=== PATIENT | male | born 1935 | race Caucasian/White ===

== ENCOUNTER → 2019-09-09 | Outpatient (CLI) | payer MEDICARE, MEDICAID ==
--- NOTE | 2019-09-09 17:24 | Diagnostic Imaging Report ---
INDICATION: Low back pain for two months. TIME OF EXAM: 3:40 p.m. FINDINGS: Three views of the lumbar spine were obtained. Curvature and alignment are normal. Vertebral body heights are well maintained. No acute compression fracture is seen. There is significant degenerative disc disease at all levels with variable disc space narrowing and marginal spurring. Atherosclerotic calcifications in the abdominal aorta are noted. IMPRESSION: Lumbar spondylosis. No acute compression fracture is identified. Dictated by: Dictated on workstation # [id number]
== END ==
LOC: RAD FS 15:33
PROVIDERS: ATTEND Nurse Practitioner
DX: M47.816 Spondylosis without myelopathy or radiculopathy, lumbar region (principal)
CPT/HCPCS: 72100

== ENCOUNTER 2020-03-02 11:40 | Emergency (ER) | payer MEDICARE, MEDICAID ==
[~2020-03-02] VITALS: Ht 175 cm; Wt 85.3 kg
--- OUTSIDE RECORDS SUMMARY | 2020-03-02 11:54 | XMS REPORT | Continuity of Care Document ---
Author Organization Unknown Address Unknown Phone Unavailable Allergies There is no data. Medications There is no data. Problems Date Dx Coded Attending Type Code Diagnosis Diagnosed By 09/10/2019 JUANITA DURHAM Ot M47.816 SPONDYLOSIS W/O MYELOPATHY OR RADICULOPA 10/04/2019 JUANITA DURHAM Ot M47.816 SPONDYLOSIS W/O MYELOPATHY OR RADICULOPA 10/21/2019 JUANITA DURHAM Ot M47.816 SPONDYLOSIS W/O MYELOPATHY OR RADICULOPA Procedures There is no data. Results There is no data. Encounters ACCT No. Visit Date/Time Discharge Status Pt. Type Provider Facility Loc./Unit Complaint [id number] 09/02/2019 13:20:00 09/02/2019 23:59: 59 [facility] [id number] 09/09/2019 15:33:00 019 23:59:59 [facility] Outpatient JUANITA DURHAM [facility] RAD FS M54.5
--- NOTE | 2020-03-02 12:19 | ED General ---
General Chief Complaint: General Problems/Pain Stated Complaint: FALL Nursing Triage Note: PT FELL MONDAY AND HIT HIS CHEST AND CHIN. HE STATES HE IS STILL HAVING DISCOMFORT WHEN HE TAKES A DEEP BREATH. Nursing Sepsis Screen: No Definite Risk Source of Information: Patient Exam Limitations: No Limitations History of Present Illness Date Seen by Provider: March 02, 2020 Time Seen by Provider: 12:09 Initial Comments 84-year-old male presents to the emergency room. Patient states he has pain in his chest he fell on Monday with contact to the floor by his chest and his chin he states his chin no longer is painful but his chest continues to be painful. Rib study EKG CBC chem profile and a troponin has been ordered. Patient has given informed consent for us to get diagnostic and therapeutic services. Patient has a healing abrasion on his submental area. This is been open for the past 2 days and is now scabbed over there is no signs of infection palpation does not identify any foreign bodies. Patient states he fell on the sidewalk walking out of the independent living/extended care facility. When asked he told anyone at the facility that he had fallen he states he wouldn't do that. Patient complains of anterior chest wall pain slightly on the left aspect of the chest wall. It is reproducible on palpation patient also has some pain in the upper right chest anterior wall. He denies any other injuries from the fall. Patient denies neck pain denies head trauma or loss of consciousness. Timing/Duration: 2-3 Days Severity: Moderate Modifying Factors: improves with Movement (patient fell on Monday and sustained trauma to his chest wall angiotension has resolved) Associated Systoms: Chest Pain, Other (patient is anxious about the chest pain which appears to be anterior chest wall) Allergies and Home Medications Allergies Coded Allergies: No Known Drug Allergies (Unverified , 03/02/20) Patient Home Medication List Home Medication List Reviewed: Yes Review of Systems Review of Systems Constitutional: see HPI, weakness (anterior chest wall pain after a fall 2 days ago) EENTM: see HPI, no symptoms reported, hearing loss (preceded the fall) Respiratory: no symptoms reported, see HPI Cardiovascular: no symptoms reported, see HPI Gastrointestinal: no symptoms reported Genitourinary: no symptoms reported Musculoskeletal: see HPI, muscle stiffness, muscle cramps (anterior chest wall stiffness and pain) Skin: no symptoms reported Psychiatric/Neurological: Anxiety (from the anterior chest wall pain) Hematologic/Lymphatic: No Symptoms Reported Immunological/Allergic: no symptoms reported Past Xylybcv-Bgfexg-Nulrwg Hx Past Med/Social Hx: Reviewed Nursing Past Med/Soc Hx Patient Social History Alcohol Use: Occasionally Uses Recreational Drug Use: No Smoking Status: Never a Smoker 2nd Hand Smoke Exposure: No Recent Foreign Travel: No Contact w/Someone Who Travel: No Recent Infectious Disease Expo: No Recent Hopitalizations: No Physical Abuse: No Sexual Abuse: No Mistreated: No Fear: No Seasonal Allergies Seasonal Allergies: No Family Medical History Reviewed Nursing Family Hx Physical Exam Vital Signs Vital Signs - First Documented 03/02/20 11:56 Temp 36.7 Pulse 78 Resp 18 B/P (MAP) 161/76 (104) Pulse Ox 94 O2 Delivery Room Air Capillary Refill : Less Than 3 Seconds Height, Weight, BMI Height: '" Weight: lbs. oz. kg; 27.00 BMI Method: General Appearance: Moderate Distress (from the anterior chest wall pain after the fall 2 days ago) Eyes: Bilateral Eye Normal Inspection, Bilateral Eye PERRL, Bilateral Eye EOMI HEENT: PERRL/EOMI, Normal ENT Inspection (patient is edentulous and has upper dentures in), Pharynx Normal, Moist Mucous Membranes Neck: Full Range of Motion (normal decrease in cervical spine range of motion secondary to DJD and age but no changes recently), Normal Inspection, Non Tender, Supple Respiratory: Chest Non Tender, Lungs Clear, Normal Breath Sounds, No Accessory Muscle Use, No Respiratory Distress Cardiovascular: Regular Rate, Rhythm, No Edema, No Gallop, No JVD, No Murmur, Other (anterior chest wall pain that appears to be related to the fall 2 days ago EKG reveals normal sinus rhythm prolonged QRS complexes and left ventricular hypertrophy) Gastrointestinal: Normal Bowel Sounds, No Organomegaly, No Pulsatile Mass, Non Tender, Soft Back: Normal Inspection, No CVA Tenderness, Muscle Spasm, Other (anterior chest wall pain from falling 2 days ago) Extremity: Normal Capillary Refill, Normal Inspection, Normal Range of Motion, Non Tender, No Calf Tenderness, No Pedal Edema, Other (patient has generalized arthritis but no pain in the shoulders elbows wrists or hands no hip knee pain but he does prefer to sit in the wheelchair.) Neurologic/Psychiatric: Alert (for age), Oriented x3 (hard of hearing), No Motor/Sensory Deficits, Normal Mood/Affect (some issues of anxiety over the persistent chest wall pain after the fall 2 days ago), 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 II-XII Norm as Tested Reflexes: 2+ Bicep (R), 2+ Bicep (L), 2+ Tricep (R), 2+ Tricep (L), 2+ Knee (R), 2+ Knee (L) Skin: Normal Color, Warm/Dry, Cool Lymphatic: No Adenopathy Progress/Results/Core Measures Suspected Sepsis Recent Fever Within 48 Hours: No Infection Criteria Present: None New/Unexplained Altered Menta: No Sepsis Screen: No Definite Risk SIRS Temperature: Pulse: 78 Respiratory Rate: 18 Laboratory Tests 03/02/20 12:26: White Blood Count 6.9 Blood Pressure 161 /76 Mean: 104 Laboratory Tests 03/02/20 12:26: Creatinine 0.90, Platelet Count 187, Total Bilirubin 0.6 Results/Orders Lab Results Laboratory Tests Test 03/02/20 12:26 Range/Units White Blood Count 6.9 4.3-11.0 10^3/uL Red Blood Count 4.79 4.35-5.85 10^6/uL Hemoglobin 14.8 13.3-17.7 G/DL Hematocrit 44 40-54 % Mean Corpuscular Volume 91 80-99 FL Mean Corpuscular Hemoglobin 31 25-34 PG Mean Corpuscular Hemoglobin Concent 34 32-36 G/DL Red Cell Distribution Width 13.9 10.0-14.5 % Platelet Count 187 130-400 10^3/uL Mean Platelet Volume 9.0 7.4-10.4 FL Neutrophils (%) (Auto) 58 42-75 % Lymphocytes (%) (Auto) 22 12-44 % Monocytes (%) (Auto) 16 H 0-12 % Eosinophils (%) (Auto) 3 0-10 % Basophils (%) (Auto) 1 0-10 % Neutrophils # (Auto) 4.0 1.8-7.8 X 10^3 Lymphocytes # (Auto) 1.5 1.0-4.0 X 10^3 Monocytes # (Auto) 1.1 H 0.0-1.0 X 10^3 Eosinophils # (Auto) 0.2 0.0-0.3 10^3/uL Basophils # (Auto) 0.1 0.0-0.1 10^3/uL Sodium Level 141 135-145 MMOL/L Potassium Level 4.2 3.6-5.0 MMOL/L Chloride Level 105 98-107 MMOL/L Carbon Dioxide Level 26 21-32 MMOL/L Anion Gap 10 5-14 MMOL/L Blood Urea Nitrogen 13 7-18 MG/DL Creatinine 0.90 0.60-1.30 MG/DL Estimat Glomerular Filtration Rate > 60 BUN/Creatinine Ratio 14 Glucose Level 103 70-105 MG/DL Calcium Level 8.9 8.5-10.1 MG/DL Corrected Calcium 9.1 8.5-10.1 MG/DL Total Bilirubin 0.6 0.1-1.0 MG/DL Aspartate Amino Transf (AST/SGOT) 17 5-34 U/L Alanine Aminotransferase (ALT/SGPT) 13 0-55 U/L Alkaline Phosphatase 85 40-136 U/L Troponin I < 0.30 <0.30 NG/ML Total Protein 7.0 6.4-8.2 GM/DL Albumin 3.7 3.2-4.5 GM/DL My Orders Orders - MADONNA GARRIDO DO Ekg Tracing (03/02/20 12:03) Ribs/Bilateral (03/02/20 12:03) Cbc And Manual Diff (03/02/20 12:13) Comprehensive Metabolic Panel (03/02/20 12:13) Troponin I Fs (03/02/20 12:13) Vital Signs/I&O 03/02/20 11:56 Temp 36.7 Pulse 78 Resp 18 B/P (MAP) 161/76 (104) Pulse Ox 94 O2 Delivery Room Air Capillary Refill : Less Than 3 Seconds Blood Pressure Mean: 104 Progress Note : Time: 13:41 Progress Note FINDINGS: Mildly angulated left lateral 4th and 5th rib fractures. There is also a mildly angulated right 5th rib fracture. No other fractures identified. Normal heart size and central pulmonary vascularity. Mild atelectasis or scarring in the right lung base. No pleural effusion or pneumothorax. IMPRESSION: 1. Mildly angulated left lateral 4th and 5th and right 5th rib fractures. Acute to subacute. 2. Mild atelectasis or scarring in the right lung base. No pleural effusion or pneumothorax. ECG Initial ECG Impression Date: March 02, 2020 Initial ECG Impression Time: 11:59 Initial ECG Rate: 68 Initial ECG Rhythm: Normal Sinus Initial ECG Intervals: Normal (she has evidence of left ventricular hypertrophy and prolonged IA interval) Initial ECG Impression: Normal Departure Impression Primary Impression: Ribs, multiple fractures Additional Impression: Abrasion, chin w/o infection Disposition: 01 HOME, SELF-CARE (patient lives in independent living facility) Condition: Improved (patient does have a fractured ribs needs to have this followed up with Lizet ROBERT) Departure-Patient Inst. Referrals: [facility] (PCP) Primary Care Physician LIZET LIAO APRN (Family) Primary Care Physician Patient Instructions: CHRONIC PAIN, Rib Fracture (DC), Skin Abrasions (DC), Acute Pain, Adult (DC) Add. Discharge Instructions: Patient understands he needs to have assistance and will have significant pain from the rib fractures. Hydrocodone 02/08/25 have been ordered. Patient will follow-up with Lizet Liao [employer] for continued care. Patient states he does have a rib belt although I have recommended that he not use this to maintain adequate respiratory function. FINDINGS: Mildly angulated left lateral 4th and 5th rib fractures. There is also a mildly angulated right 5th rib fracture. No other fractures identified. Normal heart size and central pulmonary vascularity. Mild atelectasis or scarring in the right lung base. No pleural effusion or pneumothorax. IMPRESSION: 1. Mildly angulated left lateral 4th and 5th and right 5th rib fractures. Acute to subacute. 2. Mild atelectasis or scarring in the right lung base. No pleural effusion or pneumothorax. All discharge instructions reviewed with patient and/or family. Voiced understanding. Scripts Hydrocodone/Acetaminophen (Hydrocodone-Acetamin 5-325 mg) 1 Each Tablet 1 EACH PO Q6H for Pain for 7 Days, #28 TAB Prov: MADONNA GARRIDO DO 03/02/20 Copy Copies To 1: [facility]/MADONNA CALLES DO March 02, 2020 12:19
--- NOTE | 2020-03-02 12:37 | NUR ---
SMALL ARASION UNDER THE CHIN. CLEANED WITH SOAP AND WATER AND APPLIED TRIPLE ANTIBIOTIC OINTMENT. Addendum: 03/02/20 at 1237 by MWESCOAT ABRASION
--- NOTE | 2020-03-02 12:55 | Diagnostic Imaging Report ---
EXAM: Chest with bilateral rib radiographs, 6 view. INDICATION: Chest pain left greater than right. Fall 3 days ago. COMPARISON: None. FINDINGS: Mildly angulated left lateral 4th and 5th rib fractures. There is also a mildly angulated right 5th rib fracture. No other fractures identified. Normal heart size and central pulmonary vascularity. Mild atelectasis or scarring in the right lung base. No pleural effusion or pneumothorax. IMPRESSION: 1. Mildly angulated left lateral 4th and 5th and right 5th rib fractures. Acute to subacute. 2. Mild atelectasis or scarring in the right lung base. No pleural effusion or pneumothorax. Dictated by: Dictated on workstation # [id number]
[2020-03-02 12:59] LABS: HEMATOCRIT 44 % (40-54); HEMOGLOBIN 14.8 G/DL (13.3-17.7); MEAN CORPUSCULAR HEMOGLOBIN 31 PG (25-34); MEAN CORPUSCULAR HGB CONC 34 G/DL (32-36); MEAN CORPUSCULAR VOLUME 91 FL (80-99); WHITE BLOOD COUNT 6.9 10^3/uL (4.3-11.0)
[2020-03-02 13:00] LABS: BASOPHILS # (AUTO) 0.1 10^3/uL (0.0-0.1); BASOPHILS % (AUTO) 1 % (0-10); EOSINOPHILS # (AUTO) 0.2 10^3/uL (0.0-0.3); EOSINOPHILS % (AUTO) 3 % (0-10); LYMPHOCYTES # (AUTO) 1.5 X 10^3 (1.0-4.0); LYMPHOCYTES % (AUTO) 22 % (12-44); MONOCYTES # (AUTO) 1.1 X 10^3 (0.0-1.0); MONOCYTES % (AUTO) 16 % (0-12); NEUTROPHILS % (AUTO) 58 % (42-75); PLATELET COUNT 187 10^3/uL (130-400); RED CELL DISTRIBUTION WIDTH 13.9 % (10.0-14.5)
[2020-03-02 13:17] LABS: BUN/CREATININE RATIO 14; CARBON DIOXIDE 26 MMOL/L (21-32); CHLORIDE 105 MMOL/L (98-107); GFR ESTIMATED > 60; POTASSIUM 4.2 MMOL/L (3.6-5.0); SODIUM 141 MMOL/L (135-145)
[2020-03-02 13:18] LABS: ALANINE AMINOTRANSFERASE 13 U/L (0-55); ALBUMIN 3.7 GM/DL (3.2-4.5); ALKALINE PHOSPHATASE 85 U/L (40-136); BILIRUBIN,TOTAL 0.6 MG/DL (0.1-1.0); CALCIUM 8.9 MG/DL (8.5-10.1); GLUCOSE 103 MG/DL (70-105)
[2020-03-02] MEDS ORDERED: HYDR-83 PO (13:41)
[2020-03-02 13:51] VITALS: BP 124/72
[2020-03-02 14:13] LABS: BAND NEUTROPHILS 1 %; BASOPHILS % (MANUAL) 0 %; EOSINOPHILS % (MANUAL) 2 %; LYMPHOCYTES % (MANUAL) 26 %; MONOCYTES % (MANUAL) 9 %; NEUTROPHILS % (MANUAL) 62 %
== END 2020-03-02 13:52 | disposition home or self-care (01) ==
LOC: EDUNIT# 11:40 → ER FS 11:44
DX: S22.43XA Multiple fractures of ribs, bilateral, initial encounter for closed fracture (principal); S00.81XA Abrasion of other part of head, initial encounter; W19.XXXA Unspecified fall, initial encounter
CPT/HCPCS: 36415; 71110; 80053; 84484; 85007; 85027; 93005

== ENCOUNTER → 2021-01-19 | Outpatient (CLI) | payer MEDICARE, MEDICAID ==
[~2021-01-19] MED LIST: ACHD5005 PO; AZIT500T9 PO; PRD20T PO
--- NOTE | 2021-01-19 16:19 | Diagnostic Imaging Report ---
INDICATION: Pain and swelling of the great toe. COMPARISON: None. FINDINGS: Three views of the right foot demonstrate no acute fracture or dislocation. There are no focal osseous lesions. There is no soft tissue swelling. Joint spaces are well maintained. No radiopaque foreign bodies are seen. IMPRESSION: No acute fractures or dislocations of the right foot. Dictated by: Dictated on workstation # [id number]
== END ==
LOC: RAD FS 14:16
PROVIDERS: ATTEND Nurse Practitioner Family
DX: S90.31XA Contusion of right foot, initial encounter (principal); X58.XXXA Exposure to other specified factors, initial encounter
CPT/HCPCS: 73630

== ENCOUNTER 2021-11-13 18:13 | Inpatient (IN) | payer MEDICARE, MEDICAID ==
[~2021-11-13] VITALS: Ht 177 cm; Wt 81.0 kg
--- NOTE | 2021-11-13 18:26 | ED Chest Pain ---
General Stated Complaint: RIGHT LUNG PAIN Source: patient Exam Limitations: no limitations History of Present Illness Date Seen by Provider: Nov 13, 2021 Time Seen by Provider: 18:18 Initial Comments 86-year-old male with no significant past medical history coming in due to right sided chest pain. He says it is sharp, and happens with each breath. Similar to the pain he had several months ago. Is been going on constant for the past 12 hours. He has not taken any medicines for it. Nothing seems to make it better or worse. He denies feeling short of breath, fever, cough, abdominal pain, hemoptysis, nausea, vomiting, weakness, numbness, or any other concerns Allergies and Home Medications Allergies Coded Allergies: No Known Drug Allergies (Unverified , 03/02/20) Patient Home Medication List Home Medication List Reviewed: Yes Azithromycin (Azithromycin) 500 Mg Tablet, 500 MG PO DAILY Prescribed by: REGINA ZARCO on 12/30/20 0106 Hydrocodone/Acetaminophen (Hydrocodone-Acetamin 5-325 mg) 1 Each Tablet, 1 EACH PO Q6H Prescribed by: MADONNA GARRIDO on 03/02/20 1341 Prednisone (Prednisone) 20 Mg Tab, 40 MG PO DAILY Prescribed by: REGINA ZARCO on 12/30/20 0106 Review of Systems Review of Systems Constitutional: No chills, No fever EENTM: No Blurred Vision Respiratory: Denies Cough Cardiovascular: Chest Pain Gastrointestinal: Denies Abdominal Pain Genitourinary: Denies Burning Musculoskeletal: no symptoms reported Skin: no symptoms reported Psychiatric/Neurological: No Symptoms Reported Endocrine: No Symptoms Reported Hematologic/Lymphatic: No Symptoms Reported All Other Systems Reviewed Negative Unless Noted: Yes Past Tgikekv-Hbceiq-Aslohc Hx Patient Social History Tobacco Use?: No Substance use?: No Alcohol Use?: No Seasonal Allergies Seasonal Allergies: No Past Medical History Surgeries: No Respiratory: No Cardiac: No Neurological: No Genitourinary: No Gastrointestinal: No Musculoskeletal: No Endocrine: No HEENT: No Cancer: No Psychosocial: No Integumentary: No Blood Disorders: No Physical Exam Vital Signs Vital Signs - First Documented 11/13/21 11/13/21 18:36 20:33 Temp 36.0 Pulse 70 Resp 20 B/P (MAP) 192/65 (107) Pulse Ox 94 O2 Delivery Room Air O2 Flow Rate 2.00 Capillary Refill : Height, Weight, BMI Height: '" Weight: lbs. oz. kg; 27.00 BMI Method: General Appearance: No Apparent Distress, WD/WN HEENT: PERRL/EOMI, Normal ENT Inspection, Pharynx Normal Neck: Full Range of Motion, Normal Inspection, Non Tender, Supple Respiratory: Chest Non Tender, Lungs Clear, Normal Breath Sounds, No Accessory Muscle Use, No Respiratory Distress Cardiovascular: Regular Rate, Rhythm, No Edema, Normal Peripheral Pulses Gastrointestinal: Normal Bowel Sounds, Non Tender, Soft; No Distended, No Guarding Extremity: Normal Capillary Refill, Normal Inspection, Normal Range of Motion, Non Tender, No Calf Tenderness, No Pedal Edema Neurologic/Psychiatric: No Motor/Sensory Deficits, Normal Mood/Affect Skin: Normal Color, Warm/Dry Lymphatic: No Adenopathy Progress/Results/Core Measures Results/Orders Lab Results Laboratory Tests Test 11/13/21 18:34 11/13/21 20:09 Range/Units White Blood Count 7.8 4.3-11.0 10^3/uL Red Blood Count 4.85 4.30-5.52 10^6/uL Hemoglobin 14.6 13.3-17.7 g/dL Hematocrit 44 40-54 % Mean Corpuscular Volume 91 80-99 fL Mean Corpuscular Hemoglobin 30 25-34 pg Mean Corpuscular Hemoglobin Concent 33 32-36 g/dL Red Cell Distribution Width 14.0 10.0-14.5 % Platelet Count 278 130-400 10^3/uL Mean Platelet Volume 8.7 L 9.0-12.2 fL Immature Granulocyte % (Auto) 0 % Neutrophils (%) (Auto) 54 42-75 % Lymphocytes (%) (Auto) 25 12-44 % Monocytes (%) (Auto) 14 H 0-12 % Eosinophils (%) (Auto) 7 0-10 % Basophils (%) (Auto) 1 0-10 % Neutrophils # (Auto) 4.2 1.8-7.8 X 10^3 Lymphocytes # (Auto) 1.9 1.0-4.0 X 10^3 Monocytes # (Auto) 1.1 H 0.0-1.0 X 10^3 Eosinophils # (Auto) 0.5 H 0.0-0.3 10^3/uL Basophils # (Auto) 0.1 0.0-0.1 10^3/uL Immature Granulocyte # (Auto) 0.0 0.0-0.1 10^3/uL Prothrombin Time 13.2 12.2-14.7 SEC INR Comment 1.0 0.8-1.4 Activated Partial Thromboplast Time 27 24-35 SEC D-Dimer 3.78 H 0.00-0.49 UG/ML Sodium Level 137 135-145 MMOL/L Potassium Level 4.1 3.6-5.0 MMOL/L Chloride Level 100 98-107 MMOL/L Carbon Dioxide Level 25 21-32 MMOL/L Anion Gap 12 5-14 MMOL/L Blood Urea Nitrogen 14 7-18 MG/DL Creatinine 0.92 0.60-1.30 MG/DL Estimat Glomerular Filtration Rate 82 BUN/Creatinine Ratio 15 Glucose Level 100 70-105 MG/DL Calcium Level 9.2 8.5-10.1 MG/DL Corrected Calcium 9.5 8.5-10.1 MG/DL Magnesium Level 2.3 1.6-2.4 MG/DL Total Bilirubin 0.5 0.1-1.0 MG/DL Aspartate Amino Transf (AST/SGOT) 18 5-34 U/L Alanine Aminotransferase (ALT/SGPT) 11 0-55 U/L Alkaline Phosphatase 108 40-136 U/L Troponin I < 0.30 < 0.30 <0.30 NG/ML Pro-B-Type Natriuretic Peptide 734.1 H <75.0 PG/ML Total Protein 8.2 6.4-8.2 GM/DL Albumin 3.6 3.2-4.5 GM/DL My Orders Orders - KAVEH ROGEL MD Cbc With Automated Diff (11/13/21 18:24) Magnesium (11/13/21 18:24) Chest 1 View Ap/Pa Only (11/13/21 18:24) Ekg Tracing (11/13/21 18:24) Comprehensive Metabolic Panel (11/13/21 18:24) Protime With Inr (11/13/21 18:24) Partial Thromboplastin Time (11/13/21 18:24) O2 (11/13/21 18:24) Monitor-Rhythm Ecg Trace Only (11/13/21 18:24) Aspirin Chewable Tablet (Baby Aspirin Ch (11/13/21 18:30) Ed Iv/Invasive Line Start (11/13/21 18:24) Troponin I Fs (11/13/21 18:24) Probnp Fs (11/13/21 18:24) Fibrin Degradation Products (11/13/21 18:26) Ct Angio Chest W (11/13/21 19:02) Iohexol Injection (Omnipaque 350 Mg/Ml 1 (11/13/21 19:15) Received Contrast (Hold Metformin- Contr (11/13/21 19:15) Sodium Chloride Flush (Catheter Flush Sy (11/13/21 19:15) Ns (Ivpb) (Sodium Chloride 0.9% Ivpb Bag (11/13/21 19:15) Troponin I Fs (11/13/21 19:59) Heparin Drip 53616 Unit/500ml (Heparin (11/13/21 20:30) Heparin (Bolus Per Protocol) (Heparin (B (11/13/21 20:30) Cbc No Diff (11/16/21 05:00) Cbc No Diff (11/19/21 05:00) Platelet Count (11/14/21 05:00) Platelet Count (11/15/21 05:00) Platelet Count (11/16/21 05:00) Platelet Count (11/17/21 05:00) Platelet Count (11/18/21 05:00) Platelet Count (11/19/21 05:00) Platelet Count (11/20/21 05:00) Platelet Count (11/21/21 05:00) Platelet Count (11/22/21 05:00) Platelet Count (11/23/21 05:00) Partial Thromboplastin Time (11/14/21 00:27) Protime With Inr (11/16/21 05:00) Protime With Inr (11/17/21 05:00) Protime With Inr (11/18/21 05:00) Protime With Inr (11/19/21 05:00) Protime With Inr (11/20/21 05:00) Protime With Inr (11/21/21 05:00) Protime With Inr (11/22/21 05:00) Protime With Inr (11/23/21 05:00) Protime With Inr (11/24/21 05:00) Protime With Inr (11/25/21 05:00) Initiate Heparin Full Protocol (11/13/21 20:27) Medications Given in ED Current Medications Medications Dose Ordered Sig/Musa Route Start Time Stop Time Status Last Admin Dose Admin Aspirin 324 mg ONCE ONCE PO 11/13/21 18:30 11/13/21 18:31 DC 11/13/21 18:45 324 MG Iohexol 150 ml ONCE ONCE IV 11/13/21 19:15 11/13/21 19:16 DC 11/13/21 20:04 125 ML Sodium Chloride 10 ml NEEDED PRN IV 11/13/21 19:15 11/13/21 20:04 10 ML Sodium Chloride 100 ml ONCE ONCE IV 11/13/21 19:15 11/13/21 19:16 DC 11/13/21 20:04 100 ML Vital Signs/I&O 11/13/21 11/13/21 18:36 20:33 Temp 36.0 Pulse 70 Resp 20 B/P (MAP) 192/65 (107) Pulse Ox 94 91 O2 Delivery Room Air Nasal Cannula O2 Flow Rate 2.00 Progress Progress Note : Progress Note 86-year-old male with above history coming in due to chest pain. ABCs were intact and vitals were stable on presentation initially. Basic labs obtained including cardiac biomarkers. Troponin was negative x2. D-dimer elevated. CTA chest ordered and concerning for PE on the right. Later on his oxygen dropped to around 88% on room air. He was placed on 2 L nasal cannula and started on a heparin drip after a bolus. His PESI score is 115 making him high risk. Discussed admission with Dr. Rapp who will admit the patient to the floor with tele under inpatient status for further evaluation and management. Of note, the patient was in the emergency department for several hours longer than expected due to delays in bed assignment due to how busy the [facility] has been. The patient was updated regarding this. Initial ECG Impression Date: Nov 13, 2021 Initial ECG Impression Time: 18:24 Initial ECG Rate: 67 Initial ECG Rhythm: Normal Sinus Comment Narrow QRS, borderline left axis deviation, no significant ST changes, T wave flattening in lead aVF with inversion in lead III which is nonspecific Diagnostic Imaging Diagonstic Imaging: CT (chest) Comments NAME: IZAIAH WHEELER [facility] REC#: [id number] PT STATUS: REG ER : 1935 PHYSICIAN: KAVEH ROGEL MD ADMIT DATE: 11/13/21/ER FS Draft Date of Exam:11/13/21 CT ANGIO CHEST W INDICATION: Right-sided chest pain, elevated d-dimer. EXAMINATION: CTA chest. 11/13/2021. All CT scans use one or more of the following dose optimizing techniques: automated exposure control, MA and/or KvP adjustment based on patient size and exam type or iterative reconstruction. FINDINGS: There is thrombus in the distal right main pulmonary artery which extends into the mid right pulmonary artery. Thrombus extends into all branches of the right upper lobe. Thrombus is seen extending into the right middle lobe and slightly involving several branches in the right lower lobe. No saddle embolus is seen. There is atherosclerotic disease along the aorta. Scattered slightly prominent lymph nodes seen throughout the mediastinum and right hilum. There is marked atherosclerotic disease in the visualized abdominal aorta. Multiple cysts, incompletely imaged, seen within the kidneys. No acute abnormality seen within the visualized upper abdomen. There is diffuse degenerative disease within the visualized osseous structures. Within the lungs, scattered patchy linear markings are noted throughout the lungs especially peripherally likely due to scar and/or atelectasis. There is marked emphysematous change, bilaterally. There are no significant pericardial or pleural effusions. IMPRESSION: 1. Multiple pulmonary emboli throughout the right lung involving the right main pulmonary artery as well. 2. Diffuse chronic changes within the lungs. 3. Nonspecific adenopathy in the mediastinum and right hilum. This could be reactive but could be followed to assure resolution. Other findings as above. Pertinent findings will be called to Dr. Rogel by Dr. Rueda at 8:20 PM on 11/13/2021. Dictated on workstation # [id number] Dict: 11/13/212015 Trans: 11/13/212043 [facility] [id number] Interpreted by: PARAS RUEDA MD Departure Impression Primary Impression: Pulmonary emboli Qualified Codes: I26.99 - Other pulmonary embolism without acute cor pulmonale Additional Impression: Hypoxia Disposition: 30 STILL A PATIENT Condition: Stable Admissions Decision to Admit Reason: Admit from ER (General) Decision to Admit/Date: Nov 13, 2021 Time/Decision to Admit Time: 20:46 Transfer Method of Transfer: EMS Departure-Patient Inst. Referrals: [facility] (PCP) Primary Care Physician LUCINA LIAO APRN (Family) Primary Care Physician KAVEH ROGEL MD Nov 13, 2021 18:26
[2021-11-13] MEDS ORDERED: ASPIRIN 81 MG CHEW (CHILDREN'S ASA) PO ONE (18:30)
[2021-11-13 18:38] LABS: BASOPHILS # (AUTO) 0.1 10^3/uL (0.0-0.1); BASOPHILS % (AUTO) 1 % (0-10); EOSINOPHILS # (AUTO) 0.5 10^3/uL (0.0-0.3); EOSINOPHILS % (AUTO) 7 % (0-10); HEMATOCRIT 44 % (40-54); HEMOGLOBIN 14.6 g/dL (13.3-17.7); LYMPHOCYTES # (AUTO) 1.9 X 10^3 (1.0-4.0); LYMPHOCYTES % (AUTO) 25 % (12-44); MEAN CORPUSCULAR HEMOGLOBIN 30 pg (25-34); MEAN CORPUSCULAR HGB CONC 33 g/dL (32-36); MEAN CORPUSCULAR VOLUME 91 fL (80-99); MEAN PLATELET VOLUME 8.7 fL (9.0-12.2); MONOCYTES # (AUTO) 1.1 X 10^3 (0.0-1.0); MONOCYTES % (AUTO) 14 % (0-12); NEUTROPHILS # (AUTO) 4.2 X 10^3 (1.8-7.8); NEUTROPHILS % (AUTO) 54 % (42-75); PLATELET COUNT 278 10^3/uL (130-400); WHITE BLOOD COUNT 7.8 10^3/uL (4.3-11.0)
--- NOTE | 2021-11-13 18:52 | Diagnostic Imaging Report ---
INDICATION: Chest pain. EXAMINATION: Chest, 11/13/2021. COMPARISON: 12/29/2020. FINDINGS: There are patchy infiltrates in the right mid and lower lung and at the left lung base. The heart is stable. Pulmonary vasculature unremarkable. There is no pneumothorax. There are no effusions. IMPRESSION: Patchy scattered bilateral infiltrates. Dictated by: Dictated on workstation # [id number]
[2021-11-13 18:57] LABS: BILIRUBIN,TOTAL 0.5 MG/DL (0.1-1.0); CALCIUM 9.2 MG/DL (8.5-10.1); CREATININE SERUM 0.92 MG/DL (0.60-1.30); MAGNESIUM 2.3 MG/DL (1.6-2.4); POTASSIUM 4.1 MMOL/L (3.6-5.0); PROTHROMBIN TIME PATIENT 13.2 SEC (12.2-14.7); TOTAL PROTEIN 8.2 GM/DL (6.4-8.2)
[2021-11-13 18:58] LABS: ALBUMIN 3.6 GM/DL (3.2-4.5)
[2021-11-13] MEDS ORDERED: CATHETER FLUSH 10 ML SYR IV PRN (19:15)
[2021-11-13] MEDS ORDERED: IOHEXOL 350 MG/ML 150 ML (OMNIPAQUE 350) VIAL IV ONE (19:15)
[2021-11-13] MEDS ORDERED: NS 100 ML (IVPB) BAG IV ONE (19:15)
[2021-11-13] MEDS ORDERED: HOLD METFORMIN - RECEIVED CONTRAST 20 ML VIAL IV SCH (19:15)
[2021-11-13] MEDS ORDERED: HEParin 1000 UNIT/ML (10ML VIAL) FOR BOLUS IV SCH (20:30)
[2021-11-13] MEDS ORDERED: HEParin DRIP 25000 UNIT/500ML 500 ML IV SCH (20:30)
--- NOTE | 2021-11-13 20:46 | Diagnostic Imaging Report ---
INDICATION: Right-sided chest pain, elevated d-dimer. EXAMINATION: CTA chest. 11/13/2021. All CT scans use one or more of the following dose optimizing techniques: automated exposure control, MA and/or KvP adjustment based on patient size and exam type or iterative reconstruction. FINDINGS: There is thrombus in the distal right main pulmonary artery which extends into the mid right pulmonary artery. Thrombus extends into all branches of the right upper lobe. Thrombus is seen extending into the right middle lobe and slightly involving several branches in the right lower lobe. No saddle embolus is seen. There is atherosclerotic disease along the aorta. Scattered slightly prominent lymph nodes seen throughout the mediastinum and right hilum. There is marked atherosclerotic disease in the visualized abdominal aorta. Multiple cysts, incompletely imaged, seen within the kidneys. No acute abnormality seen within the visualized upper abdomen. There is diffuse degenerative disease within the visualized osseous structures. Within the lungs, scattered patchy linear markings are noted throughout the lungs especially peripherally likely due to scar and/or atelectasis. There is marked emphysematous change, bilaterally. There are no significant pericardial or pleural effusions. IMPRESSION: 1. Multiple pulmonary emboli throughout the right lung involving the right main pulmonary artery as well. 2. Diffuse chronic changes within the lungs. 3. Nonspecific adenopathy in the mediastinum and right hilum. This could be reactive but could be followed to assure resolution. Other findings as above. Pertinent findings will be called to Dr. Castrejon by Dr. Rueda at 8:20 PM on 11/13/2021. Dictated by: Dictated on workstation # [id number]
[2021-11-14] VITALS (8 sets, daily range): BP systolic 162–192; BP diastolic 65–83
[2021-11-14] MEDS ORDERED: HEParin DRIP 25000 UNIT/500ML 500 ML IV SCH (01:45)
[2021-11-14] MEDS ORDERED: RT-ALBUTEROL/IPRATROPIUM 3 ML (DUONEB) VIAL INH PRN (01:45)
[2021-11-14] MEDS ORDERED: HEParin 1000 UNIT/ML (10ML VIAL) FOR BOLUS IV SCH (01:45)
[2021-11-14] MEDS ORDERED: CATHETER FLUSH 10 ML SYR IV PRN (01:45)
[2021-11-14] MEDS: CATHETER FLUSH 10 ML SYR IV SCH ×3 (04:01→19:19)
[2021-11-14] MEDS ORDERED: FLU QUAD HIGH DOSE 240 MCG/0.7 ML 2021-22 (FLUZONE) IM ONE (07:15)
--- NOTE | 2021-11-14 10:35 | History & Physical-Hospitalist ---
History of Present Illness HPI/Chief Complaint 86-year-old male with no significant past medical history coming in due to right sided chest pain. He says it is sharp, and happens with each breath. Similar to the pain he had several months ago. Is been going on constant for the past 12 hours. He has not taken any medicines for it. Nothing seems to make it better or worse. He denies feeling short of breath, fever, cough, abdominal pain, hemoptysis, nausea, vomiting, weakness, numbness, or any other concerns. Upon my arrival patient reported no shortness of breath nor is he felt short of breath just had pain with taking deep breaths on the right side. He denied weight loss had been feeling in his usual state of health up until the onset of his chest pain yesterday. He has had no trauma no inactivity still functioning independently at home per his report. He reports no past history of thromboembolic disease. He initially denied any leg symptoms but when I pointed out that he had a little bit of redness and swelling in the left leg compared to the right he said no he had had been swelling a little bit the last 3 or 4 days but he did not think much of it and there was some mild discomfort. He takes no medication at home [id number] otherwise. Date Seen 11/14/21 Time Seen by a Provider: 10:31 Attending Physician Gabi Mccormick MD [facility] Referring Physician Date of Admission Nov 14, 2021 at 00:30 Home Medications & Allergies Home Medications Reviewed patient Home Medication Reconciliation performed by pharmacy medication reconciliations medical administrative technician and/or nursing. Patients Allergies have been reviewed. Allergies Allergies Coded Allergies No Known Drug Allergies (Unverified03/02/20) Past Paaqwiq-Icpcbc-Jtwvpl Hx Patient Social History Tobacco Use?: No Smoking Status: Former Smoker Smokeless Tobacco Frequency: Never a User Use of E-Cig and/or Vaping dev: No Substance use?: No Alcohol Use?: No Pt feels they are or have been: No Seasonal Allergies Seasonal Allergies: No Current Status Advance Directives: Unable to obtain Communicates: Verbally Primary Language: Greek Preferred Spoken Language: Greek Is interpretation needed?: No Implanted or Applied Medical D: None Past Medical History Blood Disorders: No Review of Systems Constitutional: see HPI Physical Exam Physical Exam Vital Signs Vital Signs - First Documented 11/13/21 11/13/21 18:36 20:33 Temp 36.0 Pulse 70 Resp 20 B/P (MAP) 192/65 (107) Pulse Ox 94 O2 Delivery Room Air O2 Flow Rate 2.00 Capillary Refill : Height, Weight, BMI Height: '" Weight: lbs. oz. kg; 25.85 BMI Method: General Appearance: No Apparent Distress Respiratory: No Accessory Muscle Use, No Respiratory Distress, Other (Fine sounding basilar rales noted a little more prominent on the right than the left no wheezing chest otherwise clear.) Cardiovascular: Regular Rate, Rhythm, No Edema, No Gallop, No JVD, No Murmur, Normal Peripheral Pulses Gastrointestinal: Normal Bowel Sounds, No Organomegaly, No Pulsatile Mass, Non Tender, Soft Extremity: Other (Swelling with trace edema of the left calf there is mild erythema no over the anterior tibia without induration no ulceration noted. Rig ht side unremarkable. Extremities warm.) Results Results/Procedures Labs Laboratory Tests 11/13/21 18:34 11/14/21 07:35 Patient resulted labs reviewed. Assessment/Plan Admission Diagnosis 1. Multiple right-sided pulmonary emboli with hypoxemia currently stable on oxygen and heparin. Will switch to Eliquis with a chest dose tonight and DC heparin 2 hours after. Discussed the importance of medication compliance to prevent life-threatening recurrent blood clots. This appears to be unprovoked. 2. COPD past history of likely 70+ pack year reportedly quit 1 to [address] findings compatible with emphysema as well as some nondescript mediastinal lymphadenopathy this will need follow-up as well and overt pulmonary masses not noted underlying malignancy triggering thromboembolic disease in an individual with heavy past smoking is a concern. 3. Blood pressure elevation probable hypertension asymptomatic continue to monitor. No rhythm abnormalities will DC telemetry. Admission Status: Inpatient Order (span 2 midnights) Reason for Inpatient Admission: See admission diagnosis GABI MCCORMICK MD Nov 14, 2021 10:35
[2021-11-14] MEDS: APIXABAN 5 MG (ELIQUIS) TABLET PO SCH (19:19)
[2021-11-15] VITALS: BP 174/77
[2021-11-15 04:00] VITALS: BP 146/78
[2021-11-15] MEDS: CATHETER FLUSH 10 ML SYR IV SCH ×3 (05:14→20:10)
[2021-11-15 08:00] VITALS: BP 161/74
[2021-11-15] MEDS: APIXABAN 5 MG (ELIQUIS) TABLET PO SCH ×2 (08:11→20:10)
[2021-11-15 12:00] VITALS: BP 146/68
--- NOTE | 2021-11-15 15:53 | Physical Therapy Evaluation ---
PT Evaluation-General Medical Diagnosis Admission Date Nov 14, 2021 at 00:30 Medical Diagnosis: PE Onset Date: Nov 14, 2021 Therapy Diagnosis Therapy Diagnosis: impaired mobility, endurance Precautions Precautions/Isolations: Fall Prevention, Standard Precautions Referral Physician: Dea Reason for Referral: Evaluation/Treatment Medical History Pertinent Medical History: COPD Reviewed History: Yes Social History Home: Apartment Current Living Status: Alone Entry Into Home: Elevator Prior Prior Level of Function SCALE: Activities may be completed with or without assistive devices. 5-Hdumhjxqmt-quadbqc completes the activity by him/herself with no assistance from a helper. 5-Set-up or Clean-up Assistance-helper sets up or cleans up; patient completes activity. [place] assists only prior to or following the activity. 4-Supervision or Touching Assistance-helper provides verbal cues and/or touching/steadying and/or contact guard assistance as patient completes activity. Assistance may be provided throughout the activity or intermittently. 3-Partial/Moderate Assistance-helper does LESS THAN HALF the effort. [place] lifts, holds or supports trunk or limbs, but provides less than half the effort. 2-Substantial/Maximal Assistance-helper does MORE THAN HALF the effort. [place] lifts or holds trunk or limbs and provides more than half the effort. 6-Imxxpdbnk-lpjdpa does ALL the effort. Patient does none of the effort to complete the activity. Or, the assistance of 2 or more helpers is required for the patient to complete the activity. If activity was not attempted, code reason: 7-Patient Refused. 9-Not Applicable-not attempted and the patient did not perform the activity before the current illness, exacerbation or injury. 10-Not Attempted due to Environmental Limitations-(lack of equipment, weather restraints, etc.). 88-Not Attempted due to Medical Conditions or Safety Concerns. Bed Mobility: 6 Transfers (B,C,W/C): 6 Gait: 6 Indoor Mobility (Ambulation): Independent PT Evaluation-Current Subjective Patient in bed pre tx, agrees to PT, has no complaints of pain. Pt/Family Goals none stated Objective Patient Orientation: Person, Place, Situation Attachments: Oxygen ROM/Strength ROM Lower Extremities WNL Strength Lower Extremities grossly 4+/5 BLE Sensory Hearing: Functional Transfers Roll Left to Right (QC): 6 Sit to Lying (QC): 6 Lying to Sitting/Side of Bed(Q: 6 Sit to Stand (QC): 4 Chair/Wyv-cq-Jzrfz Xfer(QC): 4 Gait Does the Patient Walk?: Yes Mode of Locomotion: Walk Anticipated Mode of Locomotion: Walk Walk 10 feet (QC): 4 Distance: 20' Gait Assistive Device: None Comments/Gait Description Patient is very uncooperative. He insists on ambulating to the restroom using things in the room to hold onto, has therapist put bedside commode between his bed and restroom so he could hold onto it. Patient states he is tired of people telling him what to do and that he gets around at home just fine. He does agree to ambulate in the hallway tomorrow and to start trying to increase strength and balance (using a rolling walker) so he can ambulate without holding onto things. Balance Sitting Static: Normal Sitting Dynamic: Normal Standing Static: Fair Standing Dynamic: Poor Assessment/Needs Patient in bed post tx with nurse call, phone, tray, all needs met bed alarm on. Patient has impaired mobility, strength, endurance. He needs SBA for ambulation and transfers. Rehab Potential: Fair PT Dual Rate Supervisor Goals Fpc Goals PT Fpc Goals Time Frame: Nov 22, 2021 Roll Left & Right (QC): 6 Sit to Lying (QC): 6 Lying-Sitting on Side/Bed(QC): 6 Sit to Stand (QC): 5 Chair/Ncf-cw-Hufnt Xfer(QC): 5 Walk 10 feet (QC): 5 Walk 50ft with 2 Turns (QC): 5 PT Plan Problem List Problem List: Activity Tolerance, Functional Strength, Safety, Balance, Gait, Transfer, ROM Treatment/Plan Treatment Plan: Continue Plan of Care Treatment Plan: Education, Functional Activity Kye, Functional Strength, Gait, Safety, Therapeutic Exercise, Transfers Treatment Duration: Nov 22, 2021 Frequency: 6 times per week Estimated Hrs Per Day: .25 hour per day Patient and/or Family Agrees t: Yes Safety Risks/Education Patient Education: Gait Training, Transfer Techniques, Correct Positioning, Safety Issues Teaching Recipient: Patient Teaching Methods: Demonstration, Discussion Response to Teaching: Reinforcement Needed Discharge Recommendations Plan Patient will perform bed mobility and transfer training, balance and endurance training, functional strengthening, stair training, gait training, and education, to improve functional mobility and independence at home. Therapy Discharge Recommendati: Scheduled Assistance, Home & Family, Post Acute PT Time/GCodes Time In: 1536 Time Out: 1546 Total Billed Treatment Time: 10 Total Billed Treatment 1 visit EVMERLENE NUÑEZ PT Nov 15, 2021 15:53
[2021-11-15 16:00] VITALS: BP 120/90
--- NOTE | 2021-11-15 18:55 | Progress Note ---
Subjective Subjective/Events-last exam Patient states that he is doing better but battles with nurses and PT regarding walker. He wants to use furniture for stability and not use the walker. Tolerated PO diet. Denies any blood in stool. Review of Systems Pulmonary: Dyspnea (with exertion) Cardiovascular: No: Chest Pain, Palpitations, Edema Gastrointestinal: No: Nausea, Vomiting, Abdominal Pain, Diarrhea, Constipation Neurological: Weakness, Incoordination; No: Change in speech, Confusion Objective Exam Last Set of Vital Signs Vital Signs Date Time Temp Pulse Resp B/P (MAP) Pulse Ox O2 Delivery O2 Flow Rate FiO2 11/15/21 16:00 35.6 63 22 120/90 (100) 96 Nasal Cannula 3.00 Capillary Refill : I&O Intake and Output 11/15/21 00:00 Intake Total 1500 ml Output Total 975 ml Balance 525 ml Intake Oral 1500 ml Output Urine Total 975 ml # Voids 1 Daily Weight Change No General: Alert, Oriented X3, No Acute Distress HEENT: Mucous Memb Moist/[place] Lungs: Clear to Auscultation, Normal Air Movement Heart: Regular Rate, No Murmurs Abdomen: Normal Bowel Sounds, Soft, No Tenderness, No Masses Extremities: Other (1+ pitting edema bilaterally) Neuro: Normal Speech, Sensation Intact, Cranial Nerves 3-12 NL Results/Procedures Lab Laboratory Tests 11/15/21 07:26: Platelet Count 193 Assessment/Plan Assessment/Plan (1) Pulmonary emboli Status: Acute Assessment & Plan: 11/15: Started on Eliquis yesterday, discussed bleeding precautions, will continue to titrate oxygen as tolerated, home oxygen study completed, SW consulted for home O2 Qualifiers: Qualified Codes: I26.99 - Other pulmonary embolism without acute cor pulmonale (2) Hypoxia Status: Acute KACEY BLACKMAN MD Nov 15, 2021 18:55
[2021-11-15 20:00] VITALS: BP 144/67
[2021-11-16 00:02] VITALS: BP 138/70
[2021-11-16 03:46] VITALS: BP 157/79
[2021-11-16] MEDS: CATHETER FLUSH 10 ML SYR IV SCH ×2 (03:46→14:15)
[2021-11-16 08:02] VITALS: BP 150/69
[2021-11-16] MEDS: APIXABAN 5 MG (ELIQUIS) TABLET PO SCH (08:30)
[2021-11-16] MEDS ORDERED: lisINopril 10 MG (PRINIVIL) TABLET PO SCH (09:00)
[2021-11-16 10:02] LABS: HEMATOCRIT 40 % (40-54); MEAN CORPUSCULAR HEMOGLOBIN 30 pg (25-34); MEAN CORPUSCULAR HGB CONC 32 g/dL (32-36); MEAN CORPUSCULAR VOLUME 91 fL (80-99); PLATELET COUNT 233 10^3/uL (130-400); WHITE BLOOD COUNT 7.1 10^3/uL (4.3-11.0)
[2021-11-16 10:25] LABS: INR 1.3 (0.8-1.4); PROTHROMBIN TIME PATIENT 16.3 SEC (12.2-14.7)
--- NOTE | 2021-11-16 10:44 | Physical Therapy Daily Note ---
PT Daily Note-Current Subjective Patient presented sitting in bed and agreed to walk with physical therapy. Patient reported he did not want to use the walker. Mental Status Attachments: Oxygen (2L NC) Transfers SCALE: Activities may be completed with or without assistive devices. 6-Rhfitzxles-zyfpppe completes the activity by him/herself with no assistance from a helper. 5-Set-up or Clean-up Assistance-helper sets up or cleans up; patient completes activity. [place] assists only prior to or following the activity. 4-Supervision or Touching Assistance-helper provides verbal cues and/or touching/steadying and/or contact guard assistance as patient completes activity. Assistance may be provided throughout the activity or intermittently. 3-Partial/Moderate Assistance-helper does LESS THAN HALF the effort. [place] lifts, holds or supports trunk or limbs, but provides less than half the effort. 2-Substantial/Maximal Assistance-helper does MORE THAN HALF the effort. [place] lifts or holds trunk or limbs and provides more than half the effort. 3-Wmrnaxzgd-hftmul does ALL the effort. Patient does none of the effort to complete the activity. Or, the assistance of 2 or more helpers is required for the patient to complete the activity. If activity was not attempted, code reason: 7-Patient Refused. 9-Not Applicable-not attempted and the patient did not perform the activity before the current illness, exacerbation or injury. 10-Not Attempted due to Environmental Limitations-(lack of equipment, weather restraints, etc.). 88-Not Attempted due to Medical Conditions or Safety Concerns. Lying to Sitting/Side of Bed(Q: 6 Sit to Stand (QC): 6 Chair/Nup-td-Jfmeo Xfer(QC): 6 Gait Training Does the Patient Walk?: Yes Distance: 250' Walk 10 feet (QC): 4 Walk 50 ft with 2 Turns(QC): 4 Walk 150 ft (QC): 4 Gait Assistive Device: Handheld Assist Patient did not want to use a walker and reported that he just uses furniture at home to keep his balance. Patient ambulated for 250' using the railing on the wall. Patient ambulated with SBA. Assessment Patient ambulated for 250' with hand held assist or the railing for balance. Patient reported that he does not want to use the walker or allow PT to place ga it belt on for safety. Patient was educated about the benefits of using the walker and the increased safety while using the walker for balance but patient declined the use of the walker. Patient reports that his apartment is not very much bigger than this hospital room and he can always hang on to something in his apartment. Patient reported that he didn't want to wear his O2 while ambulating. Patient O2 saturation was 95% before ambulating but dropped to 82% after ambulation. Patient put his supplemental O2 back on and his O2 sat went back to 90%. PT Senior Care Goals Hyperbaric Technician Goals PT Senior Care Goals Time Frame: Nov 22, 2021 Roll Left & Right (QC): 6 Sit to Lying (QC): 6 Lying-Sitting on Side/Bed(QC): 6 Sit to Stand (QC): 5 Chair/Kbx-tk-Wwhwn Xfer(QC): 5 Walk 10 feet (QC): 5 Walk 50ft with 2 Turns (QC): 5 PT Plan Problem List Problem List: Activity Tolerance, Functional Strength, Safety, Balance, Gait, Transfer, Bed Mobility, ROM Treatment/Plan Treatment Plan: Continue Plan of Care Treatment Plan: Education, Functional Activity Kye, Functional Strength, Gait, Safety, Therapeutic Exercise, Transfers Treatment Duration: Nov 22, 2021 Frequency: 6 times per week Estimated Hrs Per Day: .25 hour per day Patient and/or Family Agrees t: Yes Time/GCodes Time In: 1006 Time Out: 1019 Total Billed Treatment Time: 14 Total Billed Treatment 1 Visit GT 14 min CHANG CUNNINGHAM PT Nov 16, 2021 10:44
[2021-11-16 11:32] VITALS: BP 152/52
[2021-11-16] MEDS ORDERED: LISI10TA25 PO (14:11)
[2021-11-16] MEDS ORDERED: APIX5TAB PO (14:11)
--- NOTE | 2021-11-16 14:12 | Discharge Summary ---
Discharge [facility] Reconcile Patient Problems Problems Reviewed?: Yes Discharge Medications New, Converted or Re-Newed RX: Transmitted to Pharmacy New Medications: Apixaban (Eliquis) 5 Mg Tablet 10 MG PO BID, #60 TAB Lisinopril (Lisinopril) 10 Mg Tablet 10 MG PO DAILY, #30 TAB Patient Instructions Goal/Follow Up Appt: Sudha with Lizet Mason in 1 week Activity & Diet Discharge Diet: No Restrictions Activity as Tolerated: Yes KACEY BLACKMAN MD Nov 16, 2021 14:11
--- NOTE | 2021-11-16 14:12 | Discharge Summary ---
Diagnosis/Chief Complaint Date of Admission Nov 14, 2021 at 00:30 Date of Discharge Discharge Diagnosis Problems/Diagnosis: (1) Pulmonary emboli Assessment & Plan: 11/15: Started on Eliquis yesterday, discussed bleeding precautions, will continue to titrate oxygen as tolerated, home oxygen study completed, SW consulted for home O2 Qualifiers: Qualified Codes: I26.99 - Other pulmonary embolism without acute cor pulmonale Status: Acute (2) Hypoxia Status: Acute Discharge Summary-Simple/Stand Consultations Discharge Physical Examination Allergies: Coded Allergies: No Known Drug Allergies (Unverified , 03/02/20) Vitals & I&Os Vital Sign - Last 12Hours Date Time Temp Pulse Resp B/P (MAP) Pulse Ox O2 Delivery O2 Flow Rate FiO2 11/16/21 11:32 36.3 60 20 152/52 (85) 95 Nasal Cannula 2.00 Intake and Output 11/16/21 00:00 Intake Total 1410 ml Balance 1410 ml Hospital Course See final discharge diagnosis. Discharge Instructions to patient/family Please see electronic discharge instructions given to patient. Discharge Medications Reviewed and agree with Discharge Medication list on patient's Discharge Instruction sheet KACEY BLACKMAN MD Nov 16, 2021 14:12
[2021-11-16 14:55] VITALS: BP 152/52
== END 2021-11-16 15:00 | disposition home or self-care (01) | DRG 176 ==
LOC: EDUNIT# 18:13 → ER FS 18:16 → 4TH 11-14 00:30
PROVIDERS: ADMIT Internal Medicine; ATTEND Family Medicine
DX: I26.99 Other pulmonary embolism without acute cor pulmonale (principal); R09.02 Hypoxemia; J43.9 Emphysema, unspecified; I10 Essential (primary) hypertension; Z87.891 Personal history of nicotine dependence; Z79.01 Long term (current) use of anticoagulants; Z79.52 Long term (current) use of systemic steroids
CPT/HCPCS: 36415; 71045; 71275; 80053; 83735; 83880; 84484; 85025; 85027; 85049; 85379; 85610; 85730; 93005; 93041; 94761

== ENCOUNTER → 2022-04-14 | Outpatient (CLI) | payer MEDICARE, MEDICAID ==
[~2022-04-14] MED LIST changes: +APIX5TAB PO; +LISI10TA25 PO
--- NOTE | 2022-04-14 14:16 | Diagnostic Imaging Report ---
EXAMINATION: CT chest without contrast. TECHNIQUE: Multiple contiguous axial images were obtained through the chest without the use of intravenous contrast. All CT scans use one or more of the following dose optimizing techniques: automated exposure control, MA and/or KvP adjustment based on patient size and exam type or iterative reconstruction. HISTORY: History of pulmonary embolus for followup. COMPARISON: 11/13/2021 FINDINGS: Thyroid: The thyroid is normal. Mediastinum: Heart size is normal without significant pericardial effusion. Calcifications of the aorta and coronary vessels. Thoracic aorta is normal in caliber. Stable prominent mediastinal lymph nodes measuring up to 1.3 cm short axis. Lungs and airways: There are background emphysematous changes of lungs without consolidation, pleural effusion, or pneumothorax. No suspicious pulmonary lesion. The airways are normal. Upper abdomen: The subphrenic structures are normal. Musculoskeletal: Degenerative changes of the spine without suspicious osseous lesion or compression fracture. Chronic right rib defects. IMPRESSION: 1. Stable background emphysematous changes in lungs without other acute abnormality in the chest. 2. Stable prominent mediastinal lymph nodes which are nonspecific. Dictated by: Dictated on workstation # [id number]
== END ==
LOC: CARDFS 13:49
PROVIDERS: ATTEND Internal Medicine Critical Care Medicine
DX: J43.9 Emphysema, unspecified (principal)
CPT/HCPCS: 71250; 93306